=== PATIENT | male | born 1955 | race Caucasian/White ===

== ENCOUNTER 2024-02-20 17:28 | Emergency (ER) | payer OTHER, SELFPAY ==
[2024-02-20 17:30] VITALS: BP 132/76
--- NOTE | 2024-02-20 19:42 | ED.GENMED ---
History of Present Illness
General
Chief Complaint: Musculo-Skeletal Complaint
Source: patient
Exam Limitations: none
Time Seen by Provider: 02/20/24 19:02
Travel History
Have you had any contact with someone who has COVID-19?: No
Do you have any symptoms of coronavirus? Fever > 100 degrees, chills, cough, shortness of breath, sore throat, loss of taste or smell, muscle aches, or headache?: No
History of Present Illness
History of Present Illness:
This is a 68 year old male that comes in with c/o right shoulder pain. Stats that he had a sharp pain in the right shoulder that was so bad that he almost passed out. State that he was just getting up off the sofa. States that he has had this pain
in the past but never this bad. States that he does lift his 29 pound grandson. Family states that he was just sitting here when he had the pain again. States that this is tender with movement. Denies any fever, chills, chest pain, SOB, abd pain,
nausea, vomiting, diarrhea, headache, dizziness, urinary burning. Denies any falls or injury.
Past History
Past History
ED Past Medical History: Hypercholesterolemia and Other (Fracture neck as child)
ED Past Surgical History: Orthopedic (Bilateral knee surgery, Hernia repair)
Social History
Tobacco: Non-smoker
Alcohol: Occasional
Personal:
Living: with family
Review of Systems
Review of Systems
All Other Systems: ROS reviewed and negative except as documented in HPI and ROS
Constitutional: Reports no symptoms; Denies fever or chills
EENT: Reports no symptoms
Respiratory: Reports no symptoms; Denies cough or trouble breathing
Cardiac: Reports no symptoms; Denies chest pain
ABD/GI: Reports no symptoms; Denies abdominal pain, nausea, vomiting or diarrhea
: Reports no symptoms; Denies dysuria, frequency or urgency
Musculoskeletal: Reports joint pain (Right shoulder pain)
Skin: Reports no symptoms
Neurological: Reports no symptoms; Denies dizzy or headache
Psychiatric: Reports no symptoms
Phy Exam
General Physical Exam
General Presentation: well appearing and no apparent distress
General age: appears stated age
General Skin: warm and dry
General Habitus: elderly
General Mental: alert
General Hydration: appears well hydrated
ENT Exam
ENT Exam: TM's normal, pharynx normal and neck supple
Eye Exam
Eye Exam: EOMI
Cardiovascular Exam
Cardiovascular Exam: regular rate/rhythm, no edema, no murmur and normal peripheral pulses
Pulmonary Exam
Pulmonary Exam: lungs clear, no respiratory distress, no rales, chest non tender, no crackles, no rhonchi, no wheezing and no cough
Gastrointestinal Exam
Gastrointestinal Exam: normal bowel sounds, non tender, soft, no organomegaly, no pulsatile mass and non distended
Musculoskeletal Exam
Musculoskeletal Exam: full ROM and other (negative for any discomfort with palpation. Patient can abduct without discomfort. Slight discomfort with cross over)
Skin Exam
Skin Exam: normal color, warm/dry, no rash and no petechia
Psychiatric Exam
Psychiatric Exam: normal mood/affect
Course
Orders/Labs/Results
Orders:
Orders
02/20/24 17:33
Electrocardiogram (*1) Urgent
Reason for Study: Bradycardia / Tachycardia
EKG- Treatment ONCE
02/20/24 19:41
Shoulder, Right 2 Views [CR Shoulder - Right Min 2 View] Urgent
Comment:
Reason For Exam: Pain
02/20/24 19:42
Ketorolac [Toradol] 30 mg IV NOW STA
02/20/24 20:09
Complete Blood Count/With Diff Urgent
Comprehensive Metabolic Panel Urgent
Troponin I Urgent
Abnormal Lab Results
02/20/24
20:09
MPV 10.7 H fL
(7.4-10.4)
Absolute Neuts (auto) 7.3 H 10^3/uL
(1.4-6.5)
Absolute Monos (auto) 0.7 H 10^3/uL
(0.1-0.6)
Lymphocytes % 18.9 L %
(20.5-51.1)
Chloride 110 H mmol/L
(98-107)
Carbon Dioxide 20 L mmol/L
(22-30)
BUN 24 H mg/dl
(9-20)
Glucose 106 H mg/dl
(70-99)
Calcium 11.1 H mg/dl
(8.4-10.2)
02/20/24 20:09
02/20/24 20:09
Chloride elevated. carbon dioxide slightly low. Dehydration. Glucose nonfasting. Calcium slightly elevated. Troponin <0.012
Vital Signs
Initial and Last Documented VS:
Initial Vital Signs
Temp Pulse Resp BP Pulse Ox
98.0 F 43 16 132/76 98
02/20/24 17:30 02/20/24 17:30 02/20/24 17:30 02/20/24 17:30 02/20/24 17:30
Last Documented Vital Signs
Temp Pulse Resp BP Pulse Ox
98.0 F 43 16 132/76 98
02/20/24 17:30 02/20/24 17:30 02/20/24 17:30 02/20/24 17:30 02/20/24 17:30
MDM/Problems Addressed
Differential Diagnosis Includes:
coronary syndrome. Musculoskeletal pain
MDM/Problems Addressed:
This is a 68 year old male that comes in with c/o right shoulder pain. States that he was just getting off the sofa when he got this sharp pain in the right shoulder and he almost passed out. States that he has had this pain before.
Will check labs and get x-ray of shoulder
Back into see patient. Reviewed labs and X-ray report. Encouraged patient to follow up with the family doctor or the multimedia specialist. Patient to increase his water intake to 8-8oz glasses daily. Patient to return with increased or changing
pain, or any other concerns .
Chronic conditions affecting care:
NA
Acute Exacerbation and/or Progression of Chronic Illness:
NA
*Radiology
Radiology exam reviewed: radiology read reviewed (RIGHT SHOULDER-Mild osteoarthrosis of the acromioclavicular joint)
*Pulse Oximetry
Patient hypoxic: no
*EKG
Interpreted by ED Provider?: Yes
Heart Rate: 68
Rate: normal
Rhythm: PAC's
Tilden: normal axis
Interval: first degree heart block
QRS Pattern: normal QRS
Ischemia: no ischemia
*Critical Care Note
Total Time (30-74mins, 75-104mins- exclusive of procedures): Not Applicable
ED Attending Note
-
Portions of this chart may have been created with voice recognition software.� Occasional wrong word or��sound alike� substitutions may have occurred due to the inherent limitations of voice recognition software.
Discharge Plan
Departure
Patient Disposition: Home (Routine Discharge)
Date of Disposition: 02/20/24
Time of Disposition: 21:09
Patient with high blood pressure during this ER visit?: Yes
Condition: Good
Covid-19: Not Applicable
Discharge Problem:
Right shoulder pain
Instructions: Shoulder Pain ED, BLOOD PRESSURE
Referrals:
Lisbeth Self I., DO [Active] - Call in 1-3 days for appt
Tom Gibbons MD [Family Provider] - Follow up in 2-3 days
Activity Restrictions/Additional Instructions:
As discussed, your blood work shows that you are dehydrated. Please increase your water intake to 8-8oz glasses daily. Your X-ray shows some osteoarthritis of the shoulder. You may use Tylenol arthritis for pain as this is the max amount of Tylenol
that you can take. Ice can also help with pain control. Follow up with the family doctor or the multimedia specialist. IF YOU HAVE INCREASED OR CHANGING PAIN, OR YOU HAVE ANY OTHER CONCERNS PLEASE RETURN TO THE EMERGENCY ROOM.
Interventions
Interventions:
*ED COVID-19 Vaccine History Last Done: 02/20/24 17:30
ED-Musculoskeletal Assessment Last Done: 02/20/24 18:40
Discharge Date and Time
Print Language: HEBREW
[2024-02-20] MEDS: TORADOL 30 MG IV (20:09)
[2024-02-20 20:22] LABS: % Basophils 0.5 % (0-2); % Eosinophils 5.1 % (0-6); % Immature Granulocytes 0.3 % (0-0.5); % Lymphocytes 18.9 % (20.5-51.1); % Monocytes 6.4 % (1.7-9.3); % Neutrophils 68.8 % (42.2-75.2); Absolute Basophils 0.1 10^3/uL (0-0.2); Absolute Eosinophils 0.5 10^3/uL (0-0.7); Absolute Monocytes 0.7 10^3/uL (0.1-0.6); Absolute Neutrophils 7.3 10^3/uL (1.4-6.5); Hematocrit 47.2 % (39.0-52.0); Hemoglobin 16.8 g/dL (13.0-18.0); Mean Corp Hgb Conc. 35.6 g/dL (33.0-37.0); Mean Corpuscular Hgb 30.8 pg (27.0-31.0); Mean Corpuscular Volume 86.6 fL (80.0-94.0); Mean Platelet Volume 10.7 fL (7.4-10.4); Nucleated Red Blood Cells % 0 % (-); Platelet Count 161 10^3/uL (130-400); Red Blood Cell Count 5.45 10^6/uL (4.70-6.10); Red Cell Dist. Width 14.4 % (11.5-14.5); White Blood Cell Count 10.5 10^3/uL (4.8-10.8)
[2024-02-20 20:42] LABS: ALT (SGPT) 48 U/L (0-50); AST (SGOT) 39 U/L (17-59); Albumin 4.5 g/dl (3.5-5.0); Alkaline Phosphatase 64 U/L (38-126); Blood Urea Nitrogen 24 mg/dl (9-20); Calcium 11.1 mg/dl (8.4-10.2); Carbon Dioxide 20 mmol/L (22-30); Chloride 110 mmol/L (98-107); Glucose 106 mg/dl (70-99); Potassium 4.6 mmol/L (3.5-5.1); Sodium 138 mmol/L (135-145); Total Bilirubin 1.2 mg/dl (0.2-1.3); Total Protein 7.3 g/dl (6.3-8.2); eGFR > 60.00
[2024-02-20 20:47] LABS: Troponin I < 0.012 ng/ml
== END 2024-02-20 23:00 | disposition home or self-care (01) ==
LOC: EMR 17:28
PROVIDERS: Clinical Nurse Specialist Family Health; EMERGENCY PHYSICIAN Emergency Medicine; FAMILY PHYSICIAN Internal Medicine
DX: R55 Syncope and collapse (principal); M25.511 Pain in right shoulder; E86.0 Dehydration; R03.0 Elevated blood-pressure reading, without diagnosis of hypertension; M19.011 Primary osteoarthritis, right shoulder; E78.00 Pure hypercholesterolemia, unspecified; Z88.2 Allergy status to sulfonamides
CPT/HCPCS: 99284; 96374; 73030; 80053; 84484; 85025; 93005